=== PATIENT | male | born 1960 | race Caucasian/White ===

== ENCOUNTER 2016-11-20 18:09 | Emergency (ER) | payer OTHER ==
--- NOTE | ~2016-11-20 | ER ---
PATIENT'S NAME: ANDREA DAVISON [facility] AGE: 56 Y [address] ROOM: [place] [address] LOCATION: [facility] ADMIT DATE: 11/20/2016 ER/Outpatient Report DISCHARGE DATE: 11/20/2016 FAMILY PHYSICIAN: PHYSICIAN, NO ATTENDING PHYSICIAN: Rene Inman Admission date and time documented on the medical record. I saw the patient at 1820 hours. CHIEF COMPLAINT: Left mid posterior calf pain, swelling. HISTORY OF PRESENT ILLNESS: This patient is a 56-year-old male, who presented to the emergency room with a 6-hour history of pain in his mid posterior left calf. He has a lump and tenderness in this area. He has some cramping. He had a little bit of cramping yesterday, but otherwise did not have any lump or tenderness until noted today. By history, the patient has had pulmonary embolism bilaterally, never were able to document a DVT. He has been on Coumadin for about 2 years, stopped the Coumadin 2 weeks ago. Presented to the emergency room this evening for evaluation. No chest pain. No shortness of breath. No recent coughs, colds, flus, fever, chills, or sweats. No headache, eyes, ears, nose, throat, neck, or spine pain. No lightheadedness, dizziness, syncope, or near syncope. No abdominal pain, nausea, vomiting, or diarrhea. No urinary symptoms. No joint problems. No history of neuro changes, psych issues, endocrine problems. HOME MEDICATIONS: See attached medication list. ALLERGIES: NONE. SOCIAL HISTORY: The patient smokes half a pack of cigarettes per day. Occasional intake of alcohol. SIGNIFICANT PAST MEDICAL HISTORY: Tobacco abuse, pulmonary embolism. OPERATIONS: ACL repair, carpal tunnel release, back surgery. REVIEW OF SYSTEMS: All systems reviewed by me are negative with the exception of those discussed PATIENT'S NAME: ANDREA DAVISON [facility] AGE: 56 Y [address] ROOM: [place] [address] LOCATION: [facility] ADMIT DATE: 11/20/2016 ER/Outpatient Report DISCHARGE DATE: 11/20/2016 FAMILY PHYSICIAN: PHYSICIAN, NO ATTENDING PHYSICIAN: Rene Inman in the history of present illness. PHYSICAL EXAMINATION: VITAL SIGNS: Temperature 97.9 tympanic, pulse 77, respirations 16, blood pressure 169/79, O2 saturation on room air is 97%. HEAD: Normocephalic. EYES, EARS, NOSE, THROAT: Clear. NECK: No nuchal rigidity. No thyromegaly or cervical adenopathy. SPINE: Negative. LUNGS: Clear. Good air flow. No rales, rhonchi, or wheezes. HEART: Regular. Pulses are palpable. ABDOMEN: Soft, nondistended, nontender. Good bowel tones. No organomegaly or abnormal mass palpable. EXTREMITIES: The patient has a point tenderness about the size of a quarter, that is tender, indurated, on the posterior mid left calf. No other deformities. Neurovascularly intact. No cyanosis. NEURO: Intact. SKIN: Clear. LABORATORY DATA AND X-RAYS: Venous Doppler study of the left leg showed a superficial thrombus in the lesser saphenous. No DVT. See dictated transcribed report. IMPRESSION: 1. Thrombus, lesser saphenous vein, left posterior calf. No evidence of deep venous thrombosis. 2. Tobacco abuse. 3. Past history of pulmonary embolism. He is on chronic anticoagulation but stopped the Coumadin 2 weeks ago. PLAN: The patient discharged from the emergency room home. Observation. Activity as tolerated. Continue present home medications and care. We will restart his Coumadin 7.5 mg once a day. We will give him Alpine 10/325 as needed for pain. Follow up with personal physician in 7 to 10 days or sooner if needed. Discussion ensued with the patient concerning my findings and recommendations, he understands. RENE INMAN MD SDS/modl PATIENT'S NAME: ANDREA DAVISON [facility] AGE: 56 Y [address] ROOM: [place], [place] [address] LOCATION: [facility] ADMIT DATE: 11/20/2016 ER/Outpatient Report DISCHARGE DATE: 11/20/2016 FAMILY PHYSICIAN: PHYSICIAN, NO ATTENDING PHYSICIAN: Rene Inman /[id number] d: 11/21/166 t: 11/21/16 1809, OUTPATIENT REPORT
--- NOTE | ~2016-11-20 | ENPV ---
Vascular Lower Extremities DVT Study Procedure Demographics Patient Name ANDREA DAVISON Date of Study 11/20/2016 Patient Number [id number] Gender Male Date of 1960 Age 56 Visit Number [id number] Height Accession Number [id number] Weight Room Number BSA BMI Referring Storm Suero MD Interpreting Jeffrey Jaffe MD Physician Physician Physician Ordering Physician Storm Suero Ict Business Analyst Mechanical Maintenance Supervisor Tony Gunderson RVT Conclusions Summary No evidence of deep vein thrombosis in the left lower extremity , but there is superficial thrombophlebitis in the small saphenous vein in the left calf. Procedure Type of Study: Veins:Lower Extremities DVT Study, Lower Extremity Left. Indications for Study:Pain in Limb. Appropriate Use Criteria:9 Patient Status:STAT. Study Location:ER. Technical Quality:Adequate visualization. Velocities are measured in cm/s ; Diameters are measured in cm Right Lower Extremities DVT Study Measurements Right 2D and Doppler Measurements + + + + +------+------+ + !Location !Visualized!Compressibility!Thrombosis!Signal!Reflux!Reflux ! ! ! ! ! ! ! !(sec) ! + + + + +------+------+ + !Common !Yes !Yes !None ! ! ! ! !Femoral ! ! ! ! ! ! ! + + + + +------+------+ + Left Lower Extremities DVT Study Measurements Left 2D and Doppler Measurements + + + + +------+------+ + !Location !Visualized!Compressibility!Thrombosis!Signal!Reflux!Reflux ! ! ! ! ! ! ! !(sec) ! + + + + +------+------+ + !GSV Thigh !Yes !Yes !None !Phasic!No ! ! + + + + +------+------+ + !Common !Yes !Yes !None !Phasic!No ! ! !Femoral ! ! ! ! ! ! ! + + + + +------+------+ + !Prox !Yes !Yes !None !Phasic!No ! ! !Femoral ! ! ! ! ! ! ! + + + + +------+------+ + !Mid Femoral!Yes !Yes !None !Phasic!No ! ! + + + + +------+------+ + !Dist !Yes !Yes !None !Phasic!No ! ! !Femoral ! ! ! ! ! ! ! + + + + +------+------+ + !Popliteal !Yes !Yes !None !Phasic!No ! ! + + + + +------+------+ + !Gastroc !Yes !Yes !None !Phasic!No ! ! + + + + +------+------+ + !PTV !Yes !Yes !None !Phasic!No ! ! + + + + +------+------+ + !Peroneal !Yes !Yes !None !Phasic!No ! ! + + + + +------+------+ + Signature dtt: ALEXANDRU FRANK dtmi: 11/20/16 1856 Physician Self Edit
== END 2016-11-20 20:26 | disposition disaster alternative care site (69) ==
LOC: GMED 18:09
DX: I80.02 Phlebitis and thrombophlebitis of superficial vessels of left lower extremity (principal); F17.210 Nicotine dependence, cigarettes, uncomplicated; Z79.01 Long term (current) use of anticoagulants; Z86.711 Personal history of pulmonary embolism; Z98.890 Other specified postprocedural states; Z79.82 Long term (current) use of aspirin; Z79.899 Other long term (current) drug therapy